=== PATIENT | female | born 1970 | race American Indian/Alaskan Native ===

== ENCOUNTER 2017-03-12 15:09 | Emergency (ER) | payer OTHER ==
[2017-03-12 16:05] LABS: Bilirubin,Urine NEG (Negative); Blood,Urine LG (Negative); Ketones,Urine NEG (Negative); Leukocyte Esterase,Urine NEG (Negative); Mucus,Urine FEW /HPF; Nitrite,Urine NEG (Negative); Protein,Urine <15 mg/dL mg/dL (Negative); Urobilinogen,Urine < 2.0 mg/dL (<2.0)
[2017-03-12 17:02] LABS: Basophils % (Auto) 0.8 % (0.0-1.8); Eosinophils % (Auto) 2.3 % (0.0-4.3); Hematocrit 35.1 % (30.3-42.9); Hemoglobin 11.3 gm/dl (10.1-14.3); Mean Corpuscular HGB Conc 32 % (30-34); Mean Corpuscular Hemoglobin 27 pg (28-32); Mean Corpuscular Volume 85 fl (79-97); Platelet Count 179 K/mm3 (140-440); Red Blood Count 4.15 M/mm3 (3.65-5.03); Red Cell Distribution Width 15.7 % (13.2-15.2); White Blood Count 5.1 K/mm3 (4.5-11.0)
[2017-03-12 17:07] LABS: Anion Gap 14 mmol/L; BUN/Creatinine Ratio 14; Blood Urea Nitrogen 11 mg/dL (7-17); Calcium 9.1 mg/dL (8.4-10.2); Carbon Dioxide 27 mmol/L (22-30); Chloride 103.6 mmol/L (98-107); Glucose 115 mg/dL (65-100); Potassium 3.9 mmol/L (3.6-5.0); Sodium 141 mmol/L (137-145)
[2017-03-12 17:10] LABS: Alanine Aminotransferase 9 units/L (7-56); Albumin 4.1 g/dL (3.9-5); Albumin/Globulin Ratio 1.7 %; Alkaline Phosphatase 52 units/L (35-129); Total Protein 6.5 g/dL (6.3-8.2)
[2017-03-12 17:16] LABS: Bilirubin,Direct < 0.2 mg/dL (0-0.2)
--- NOTE | 2017-03-12 21:20 | Emergency Department Report ---
ED Female HPI - General Chief complaint: Urogenital-Female Stated complaint: ABD PAIN AND FOUL DISCHARGE Time Seen by Provider: 03/12/17 16:40 Source: patient Mode of arrival: Ambulatory Limitations: No Limitations - History of Present Illness Initial comments: Patient is a 46 years old female with history of fibroid she is came today for evaluation of vaginal bleeding and foul-smelling discharge that he started with her cycle. Patient stated that she had the same symptoms a few months ago and she was given antibiotic it cleared-up. She stated that she is not sexually active. She denied fever nausea or vomiting. MD Complaint: vaginal bleeding -: Gradual - Related Data Previous Rx's Medication Instructions Recorded Last Taken Type Ciprofloxacin HCl [Ciprofloxacin 500 mg PO Q12H #14 tab 03/12/17 Unknown Rx TAB] Naproxen [Naprosyn] 500 mg PO BID #14 tablet 03/12/17 Unknown Rx metroNIDAZOLE [Flagyl] 500 mg PO Q12HR #14 tab 03/12/17 Unknown Rx Allergies Allergy/AdvReac Type Severity Reaction Status Date / Time No Known Allergies Allergy Unverified 03/12/17 15:15 ED Review of Systems ROS: Stated complaint: ABD PAIN AND FOUL DISCHARGE Other details as noted in HPI Comment: All other systems reviewed and negative Constitutional: denies: chills, fever Respiratory: denies: cough, shortness of breath Cardiovascular: denies: chest pain, palpitations Gastrointestinal: abdominal pain. denies: nausea, vomiting, diarrhea, constipation, hematemesis, melena, hematochezia Genitourinary: discharge, abnormal menses. denies: urgency, dysuria, frequency , hematuria, dyspareunia Neurological: denies: headache ED Past Medical Hx - Past Medical History Previous Medical History?: Yes Additional medical history: FIBRIOD /PID - Surgical History Past Surgical History?: No - Social History Smoking Status: Never Smoker Substance Use Type: None - Medications Home Medications: Home Medications Medication Instructions Recorded Confirmed Last Taken Type Ciprofloxacin HCl [Ciprofloxacin 500 mg PO Q12H #14 tab 03/12/17 Unknown Rx TAB] Naproxen [Naprosyn] 500 mg PO BID #14 tablet 03/12/17 Unknown Rx metroNIDAZOLE [Flagyl] 500 mg PO Q12HR #14 tab 03/12/17 Unknown Rx ED Physical Exam - General Limitations: No Limitations General appearance: alert, in no apparent distress - Head Head exam: Present: normocephalic - Eye Eye exam: Present: normal appearance - ENT ENT exam: Present: normal exam, mucous membranes moist - Neck Neck exam: Present: normal inspection. Absent: tenderness, meningismus - Respiratory Respiratory exam: Present: normal lung sounds bilaterally. Absent: respiratory distress, wheezes, rales, rhonchi, stridor, chest wall tenderness, accessory muscle use, decreased breath sounds, prolonged expiratory - Cardiovascular Cardiovascular Exam: Present: regular rate, normal rhythm, normal heart sounds - GI/Abdominal GI/Abdominal exam: Present: soft, normal bowel sounds. Absent: distended, tenderness, guarding, rebound, rigid, organomegaly, mass, bruit, pulsatile mass , hernia - External exam: Present: other - Extremities Exam Extremities exam: Present: normal inspection. Absent: calf tenderness - Back Exam Back exam: Present: normal inspection. Absent: CVA tenderness (R), CVA tenderness (L) - Neurological Exam Neurological exam: Present: alert, oriented X3, CN II-XII intact, normal gait - Skin Skin exam: Present: warm, intact, normal color ED Course Vital Signs 03/12/17 03/12/17 15:15 21:41 Temperature 98.7 F Pulse Rate 106 H 88 Respiratory 18 16 Rate Blood Pressure 136/86 Blood Pressure 122/68 [Left] O2 Sat by Pulse 99 100 Oximetry ED Medical Decision Making - Lab Data Result diagrams: 03/12/17 16:40 03/12/17 16:40 Critical care attestation.: If time is entered above; I have spent that time in minutes in the direct care of this critically ill patient, excluding procedure time. ED Disposition Clinical Impression: Abdominal pain, Menstrual cramps Disposition: DC-01 TO HOME OR SELFCARE Is pt being admited?: No Condition: Stable Instructions: Uterine Fibroids (ED) Prescriptions: Ciprofloxacin HCl [Ciprofloxacin TAB] 500 mg PO Q12H #14 tab metroNIDAZOLE [Flagyl] 500 mg PO Q12HR #14 tab Naproxen [Naprosyn] 500 mg PO BID #14 tablet Referrals: PRIMARY CARE, [Primary Care Provider] - 3-5 Days
[2017-03-12 21:42] VITALS: BP 122/68
== END 2017-03-12 21:42 | disposition home or self-care (01) ==
LOC: ED 15:09
DX: R10.9 Unspecified abdominal pain (principal)
CPT/HCPCS: 36415; 80048; 80074; 81001; 81025; 85025; 99284

== ENCOUNTER 2018-09-22 18:23 | Emergency (ER) | payer OTHER ==
--- NOTE | 2018-09-22 18:27 | Event Note ---
ED Screening Note ED Screening Note: CO BURNING WITH URINATION This initial assessment/diagnostic orders/clinical plan/treatment(s) is/are subject to change based on patients health status, clinical progression and re- assessment by fellow clinical providers in the ED. Further treatment and workup at subsequent clinical providers discretion. Patient/guardian urged not to elope from the ED as their condition may be serious if not clinically assessed and managed. Initial orders include: UA PREG
[2018-09-22 20:31] LABS: HCG Qualitative,Urine Negative (Negative)
[2018-09-22 20:41] LABS: Bilirubin,Urine NEG (Negative); Blood,Urine SM (Negative); Color,Urine Yellow (Yellow); Mucus,Urine 3+ /HPF; Protein,Urine <15 mg/dL mg/dL (Negative)
[2018-09-22 20:54] VITALS: BP 162/94
--- NOTE | 2018-09-22 21:04 | Emergency Department Report ---
ED Back Pain/Injury HPI - General Chief Complaint: Abdominal Pain Stated Complaint: PAIN ON (R) SIDE/LOWER BACK/UTI Time Seen by Provider: 09/22/18 18:26 Source: patient Limitations: No Limitations - History of Present Illness Initial Comments: Patient is a 48-year-old Female who presented with some right lower back pain for approximately a week. Patient states the pain is achy in nature and is worse when she tries to stand completely straight up. Patient states she does have some minor discomfort with urination but she states she is also on her menses. Patient only gets some soreness and crampiness in her bilateral lower back during her menses but not more so on the right than the left. The patient denies any fevers chills nausea vomiting or diarrhea. She denies any vaginal discharge. - Related Data Previous Rx's Medication Instructions Recorded Last Taken Type Ciprofloxacin HCl [Ciprofloxacin 500 mg PO Q12H #14 tab 03/12/17 Unknown Rx TAB] Naproxen [Naprosyn] 500 mg PO BID #14 tablet 03/12/17 Unknown Rx metroNIDAZOLE [Flagyl] 500 mg PO Q12HR #14 tab 03/12/17 Unknown Rx DOXYCYCLINE Hyclate [Vibramycin 100 mg PO Q12HR 7 Days #14 capsule 03/27/18 Unknown Rx CAP] Naproxen [Naprosyn] 500 mg PO BID PRN #12 tablet 03/27/18 Unknown Rx metroNIDAZOLE [Flagyl] 500 mg PO Q12HR 7 Days #14 tab 03/27/18 Unknown Rx Ketorolac [Toradol] 10 mg PO Q6H PRN #12 tablet 09/22/18 Unknown Rx methOCARBAMOL [Robaxin TAB] 500 mg PO Q6H PRN #10 tablet 09/22/18 Unknown Rx Allergies Allergy/AdvReac Type Severity Reaction Status Date / Time No Known Allergies Allergy Verified 09/22/18 18:27 ED Review of Systems ROS: Stated complaint: PAIN ON (R) SIDE/LOWER BACK/UTI Other details as noted in HPI Comment: All other systems reviewed and negative ED Past Medical Hx - Past Medical History FIBRIOD /PID Family history: hypertension ED Back Pain Physical Exam - Exam General: Vital signs noted. No distress. Alert and acting appropriately. Back/Abdomen: Yes Perilumbar Tenderness (right sided), No Abdominal Tenderness, No Perithoracic Tenderness, No Sacroiliac Tenderness, No Flank Tenderness, No Straight Leg Raise Pain Neuro: Yes Normal Sensation, Yes Normal DTR's, Yes Normal Gait, No Motor Weakness ED Course Vital Signs 09/22/18 09/22/18 18:56 20:53 Temperature 98.1 F Pulse Rate 92 H 90 Respiratory 16 18 Rate Blood Pressure 152/91 Blood Pressure 162/94 [Left] O2 Sat by Pulse 100 100 Oximetry ED Medical Decision Making - Lab Data Lab Results 09/22/18 Range/Units Unknown Urine Color Yellow (Yellow) Urine Turbidity Clear (Clear) Urine pH 5.0 (5.0-7.0) Ur Specific [place] 1.026 (1.003-1.030) Urine Protein <15 mg/dl (Negative) mg/dL Urine Glucose (UA) Neg (Negative) mg/dL Urine Ketones Neg (Negative) mg/dL Urine Blood Sm (Negative) Urine Nitrite Neg (Negative) Ur Reducing Substances Not Reportable Urine Bilirubin Neg (Negative) Urine Ictotest Not Reportable Urine Urobilinogen 2.0 (<2.0) mg/dL Ur Leukocyte Esterase Neg (Negative) Urine WBC (Auto) 1.0 (0.0-6.0) /HPF Urine RBC (Auto) 8.0 (0.0-6.0) /HPF U Epithel Cells (Auto) 1.0 (0-13.0) /HPF Urine Mucus 3+ /HPF Urine HCG, Qual Negative (Negative) - Medical Decision Making Patient's urinalysis is not consistent with an infection. 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 Patient likely with musculoskeletal pain given that this is worse with movement. The patient states she has a history of uterine fibroids and is wondering if the fibroids are also causing pain. 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 Patient started on 800 mg Motrin as well as Robaxin for her discomfort and the patient be discharged home. Critical care attestation.: If time is entered above; I have spent that time in minutes in the direct care of this critically ill patient, excluding procedure time. ED Disposition Clinical Impression: Lumbar strain Qualifiers: Encounter type: initial encounter Qualified Code(s): S39.012A - Strain of muscle, fascia and tendon of lower back, initial encounter Disposition: DC-01 TO HOME OR SELFCARE Is pt being admited?: No Does the pt Need Aspirin: No Condition: Stable Instructions: Muscle Strain (ED) Referrals: NORMAN BURKS MD [Staff Physician] - 3-5 Days Time of Disposition: 21:03
== END 2018-09-22 21:22 | disposition home or self-care (01) ==
LOC: ED 18:23
DX: S39.012A Strain of muscle, fascia and tendon of lower back, initial encounter (principal); X50.0XXA Overexertion from strenuous movement or load, initial encounter; Y93.89 Activity, other specified; Y92.89 Other specified places as the place of occurrence of the external cause; Y99.8 Other external cause status
CPT/HCPCS: 81001; 81025; 99283

== ENCOUNTER 2019-05-08 16:26 | Emergency (ER) | payer SELFPAY ==
--- NOTE | 2019-05-08 17:29 | Event Note ---
ED Screening Note Date of service: 05/08/19 Time: 17:27 ED Screening Note: 48 y o f presents with uRI sx with no relief fever/malaise, loosing voice This initial assessment/diagnostic orders/clinical plan/treatment(s) is/are subject to change based on patients health status, clinical progression and re- assessment by fellow clinical providers in the ED. Further treatment and workup at subsequent clinical providers discretion. Patient/guardian urged not to elope from the ED as their condition may be serious if not clinically assessed and managed. Initial orders include: cxr acc eval
[2019-05-08 17:31] VITALS: BP 144/92
--- NOTE | 2019-05-08 21:38 | Emergency Department Report ---
Chief Complaint: Upper Respiratory Infection Stated Complaint: FLU SYM Time Seen by Provider: 05/08/19 21:19 - HPI History of Present Illness: 48-year-old -[place] female comes in for a 2 day history of itchy throat dry throat and scratchy throat with itchy ears. Patient also admits to being hoarse. Patient reports that she has been drinking cheese and fluids. Patient is taking nothing else for her discomfort. Patient denies any fever chills no nausea no vomiting no chest pain. She does admit to a mild cough. - Exam Vital Signs: Vital Signs 05/08/19 16:49 Temperature 98.8 F Pulse Rate 99 H Respiratory 18 Rate Blood Pressure 144/92 O2 Sat by Pulse 100 Oximetry Physical Exam: Patient's alert and oriented 3 no acute distress nontoxic in appearance. HEENT ears are normal no signs of infection, nasal passages are patent, throat was patent on edematous no exudate mouth erythematous Chest clear to auscultation Cardiac regular rate and rhythm MSE screening note: Focused history and physical exam performed. Due to findings the following was ordered: 48-year-old -[place] female comes in for a 2 day history of itchy throat dry throat and scratchy throat with itchy ears. Patient also admits to being hoarse. Patient reports that she has been drinking cheese and fluids. Patient is taking nothing else for her discomfort. Patient denies any fever chills no nausea no vomiting no chest pain. She does admit to a mild cough. Recommend [id number] Zyrtec, Claritin, Joyce. Discussed the patient to increase her fluid intake E ice chips rest her voice Tylenol or ibuprofen for any pain. Follow up with the primary care provider if her symptoms persist or gets worse. ED Disposition for MSE Is pt being admited?: No Does the pt Need Aspirin: No Condition: Stable Instructions: Viral Syndrome (ED) Additional Instructions: Recommend [id number] Zyrtec, Claritin, Joyce. Discussed the patient to increase her fluid intake E ice chips rest her voice Tylenol or ibuprofen for any pain. Follow up with the primary care provider if her symptoms persist or gets worse. Referrals: PRIMARY MD TRISTIN [Primary Care Provider] - 3-[address] [facility] [Provider Group] - 3-5 Days PHILIPP ELY MD [Staff Physician] - 3-5 Days
== END 2019-05-08 21:55 | disposition home or self-care (01) ==
LOC: ED 16:26
DX: R09.89 Other specified symptoms and signs involving the circulatory and respiratory systems (principal); R05 Cough
CPT/HCPCS: 99281